=== PATIENT | female | born 1970 | race Caucasian/White ===

== ENCOUNTER 2017-05-01 17:24 | Emergency (ER) | payer SELFPAY ==
[2017-05-01 20:26] LABS: BASOPHILS 0.2 % (0-2); EOSINOPHILS 0.4 % (0-7); HEMATOCRIT 34.9 % (36.0-48.0); HEMOGLOBIN 11.3 g/dL (12-16); IMMATURE GRANULOCYTES 0.4 % (0-5); LYMPHOCYTES 12.9 % (15-50); MCH 28.5 pg (26.0-34.0); MCHC 32.4 g/dL (31.0-37.0); MCV 87.9 fL (80.0-100.0); MEAN PLATELET VOLUME 9.3 fL (7.4-10.4); NEUTROPHILS 80.1 % (40-80); PLATELET COUNT 274 10x3/uL (130-400); RBC 3.97 10x6/uL (4.00-5.40); WBC 11.4 10x3/uL (4.8-10.8)
[2017-05-01 20:33] LABS: CALC OSMOLALITY 276 mosm/kg (275-300); CALCIUM 7.7 mg/dL (8.5-10.1); CARBON DIOXIDE 24.2 mmol/L (21.0-32.0); CHLORIDE - SERUM 105 mmol/L (98-107); CREATININE - SERUM 0.7 mg/dL (0.6-1.3); GLUCOSE 102 mg/dL (74-106); POTASSIUM - SERUM 3.9 mmol/L (3.5-5.1); SODIUM 138 mmol/L (136-145); UREA NITROGEN 15 mg/dL (7-18); eGFR NON AFRICAN AMERICAN > 90 mL/min (90-120)
== END 2017-05-01 20:37 | disposition home or self-care (01) ==
LOC: D.ER 17:24
PROVIDERS: Nurse Practitioner Acute Care
DX: S47.1XXA Crushing injury of right shoulder and upper arm, initial encounter (principal); X36.1XXA Avalanche, landslide, or mudslide, initial encounter; Y93.89 Activity, other specified; Y92.89 Other specified places as the place of occurrence of the external cause; S40.021A Contusion of right upper arm, initial encounter

== ENCOUNTER 2017-11-24 05:15 | Day surgery (SDC) | payer OTHER ==
[2017-11-23 12:15] LABS: BASOPHILS 0.4 % (0-2); EOSINOPHILS 1.7 % (0-7); HEMATOCRIT 39.1 % (36.0-48.0); HEMOGLOBIN 12.5 g/dL (12-16); IMMATURE GRANULOCYTES 0.4 % (0-5); MCH 28.7 pg (26.0-34.0); MCV 89.7 fL (80.0-100.0); MEAN PLATELET VOLUME 8.8 fL (7.4-10.4); MONOCYTES 7.3 % (2-11); NEUTROPHILS 65.2 % (40-80); PLATELET COUNT 295 10x3/uL (130-400); RBC 4.36 10x6/uL (4.00-5.40); RDW 13.2 % (11.5-14.5); WBC 7.5 10x3/uL (4.8-10.8)
[~2017-11-24] VITALS: Ht 157.5 cm; Wt 83.5 kg
--- NOTE | ~2017-11-24 | OP ---
PATIENT NAME: REJI CRESPO MEDICAL RECORD: [id number] :70 LOCATION:[facility] ADMISSION DATE: SURGEON: KYLE AVERY MD DATE OF OPERATION: 11/24/2017 PREOPERATIVE DIAGNOSES: Metrorrhagia/intermenstrual bleeding. POSTOPERATIVE DIAGNOSES: Metrorrhagia/intermenstrual bleeding. PROCEDURES: Hysteroscopy, dilation and curettage. SURGEON: Kyle Avery MD ANESTHESIA: General. IV FLUID: Per anesthesia record. HYSTEROSCOPIC FLUID LOSS: Less than 100 cc of 0.9 normal saline. ESTIMATED BLOOD LOSS: Minimal. SPECIMENS: Endometrial curettings. FINDINGS: 1. Grossly normal-appearing external genitalia and cervix. 2. Multiple benign-appearing endometrial polyps. COMPLICATIONS: None apparent. PROCEDURE IN DETAIL: The patient was taken to the operating room, where general anesthesia was achieved without any difficulty. The patient was then prepped and draped in normal sterile fashion in the dorsal lithotomy position. At this point, the bladder was drained of approximately 100 cc of clear yellow urine. A speculum was then placed into the vagina and the cervix was grasped on its anterior lip with a single-tooth tenaculum. The uterus was then sounded and dilated to approximately 6 mm. At this point, hysteroscope was introduced into the uterus without resistance and under direct visualization. Survey of the uterine fundus, midportion, and endocervical canal was performed. A #1 curette was then used to gently curettage all 4 quadrants including the removal of several small endometrial polyps. Minimal bleeding was noted following the D&C and the single-tooth tenaculum was removed. The patient tolerated procedure well, was transferred to postanesthesia recovery stable without incident. TRANSINT:[id number] Voice Confirmation ID: [id number] DOCUMENT ID: [id number] KYLE AVERY MD at 1007 CC: [id number] DICTATION DATE: 12/18/17805 FIELD NATURALIST: 12/18/17 1354 [facility] 11/24/17 [id number] [place] [address]
[~2017-11-24 05:15] MED LIST: CLARITIN-D1 TAB.SR1 PO; CYMBALTA60 MG PO; NAPROSYN500 MG PO
[2017-11-24] MEDS ORDERED: PEPCID20 MG PO (05:50)
[2017-11-24 05:51] VITALS: BP 129/82; BMI 33.7
[2017-11-24 06:25] LABS: HCG URINE NEGATIVE (NEGATIVE)
[2017-11-24 06:40] VITALS: Ht 157.5 cm; Wt 83.5 kg
== END 2017-11-24 09:50 | disposition home or self-care (01) ==
LOC: D.OPS 05:15 → D.PAN 07:30 → D.OPS 09:15 → D.PAN 09:15 → D.OPS 09:50
PROVIDERS: Obstetrics & Gynecology
DX: N92.1 Excessive and frequent menstruation with irregular cycle (principal); K21.9 Gastro-esophageal reflux disease without esophagitis; Z01.812 Encounter for preprocedural laboratory examination

== ENCOUNTER → 2020-03-21 08:07 | Outpatient (CLI) | payer OTHER ==
[2017-11-24 06:40] VITALS: BMI 33.7
[~2020-03-21 08:07] MED LIST changes: +PEPCID20 MG PO
== END | disposition home or self-care (01) ==
LOC: D.MRI 08:07
PROVIDERS: ATTEND Nurse Practitioner Family
DX: M25.561 Pain in right knee (principal)

== ENCOUNTER 2020-04-11 09:36 | Day surgery (SDC) | payer OTHER ==
[~2020-04-11] VITALS: Ht 157.5 cm; Wt 87.5 kg
[2020-04-11 10:15] LABS: HEMATOCRIT 38.9 % (36.0-48.0); MCH 24.8 pg (26.0-34.0); MCHC 30.8 g/dL (31.0-37.0); MCV 80.4 fL (80.0-100.0); MEAN PLATELET VOLUME 9.3 fL (7.4-10.4); RBC 4.84 10x6/uL (4.00-5.40); WBC 6.9 10x3/uL (4.8-10.8)
[2020-04-11 10:35] LABS: HCG SERUM NEGATIVE (NEGATIVE)
[2020-04-11 10:42] VITALS: BP 117/68; Ht 157.5 cm; Wt 87.5 kg
--- NOTE | 2020-04-11 16:20 | NUR ---
1600 IV REMOVED AND INSTRUCTIONS GIVEN
--- NOTE | 2020-04-11 17:10 | NUR ---
1520 MEDICATED FOR PAIN. 1700 IV REMOVED AND INSTRUCTIONS GIVEN. ASSITED TO BATHROOM WITH WALKER. VOIDED
--- NOTE | 2020-04-13 12:49 | OP ---
PATIENT NAME: REJI CRESPO MEDICAL RECORD: [id number] :70 LOCATION:[facility] ADMISSION DATE: SURGEON: SCOOBY OGDEN DO DATE OF OPERATION: 04/11/2020 PROCEDURE PERFORMED: Right knee arthroscopy with medial meniscal repair, plica resection, and loose body removal. PREOPERATIVE DIAGNOSES: Right knee medial meniscal tear, loose body and plica. POSTOPERATIVE DIAGNOSES: Right knee medial meniscal tear, loose body and plica. INDICATIONS: Ms. Crespo is a 50-year-old female who has had right knee pain for quite some time, popping, catching, locking, and continued pain. She wanted something done surgically as it has been bothering her quite some time. I informed her that due to her age, she is 51, I would probably not repair the meniscus initially; once I got in there, I saw that it needed to be informed of the risks including, retear, continued pain, damage to the nerves and vessels in the area, arthrofibrosis and need for further surgery, blood clots, and even and she signed the consent. SURGEON: Scooby Ogden DO DESCRIPTION OF PROCEDURE: The patient was taken to operative suite and laid in supine position, given general anesthetic and 2 grams Ancef and LMA was placed. The right lower extremity was then prepped and draped in sterile fashion. A timeout was performed; everyone was in agreement with the correct side, site, patient and procedure. I then began by establishing a lateral portal with an 11-blade scalpel. Trocar was then entered into the knee and the camera entered the knee. The suprapatellar pouch was free of debris and the articular cartilage of the patella to be in good repair. Medial and lateral gutters were checked and no loose body seen. I then flexed the knee down entered the medial compartment. There was a large loose body seen in it, the medial portal was established with an 18-gauge spinal needle and 11-blade scalpel. I brought in a shaver and removed the loose body. I then saw the meniscal tear which was at the middle portion of the medial meniscus. It was a horizontal tear, which it. I decided at that point I need to repair because it would split and if I trimmed out the whole thing she would be left with little to no meniscus. I switched camera portals after inspecting the ACL, which was in good repair in the lateral compartment, which is also no tears of the meniscus or no chondromalacia. I then switched the portals from lateral to medial and then brought in the Fast-Fix from the lateral portal and put in 2 Fast-Fix to tie down the linear tear horizontal tear through the meniscus, repairing it nicely, chewed back any of the other fraying of the meniscus. Then, the tourniquet was inflated during the procedure due to some bleeding and it was let down 18 minutes 350 mmHg. I then resected the plica that which was noted over the medial condyle with a shaver, I then took a power pick and picked the notch in order to get some pluripotential cells to assist with meniscal repair. The instruments were then all removed. The excess fluid was removed from the knee to suction and the portal sites were closed by Adarsh Cox, certified surgical scrub technician with 4-0 Monocryl in inverted interrupted fashion. Steri-Strips, Adaptic, 4 x 4's, ABD, Webril, and Juve wrap were then placed on each incision. She was then awakened and taken to recovery in stable condition. ESTIMATED BLOOD LOSS: Minimal. OPERATIVE REPORT [id number] REJI CRESPO COMPLICATIONS: None. TRANSINT:[id number] Voice Confirmation ID: [id number] DOCUMENT ID: [id number] SCOOBY OGDEN DO at 1249 CC: [id number] DICTATION DATE: 04/11/20 1738 ORACLE DEVELOPER: 04/12/20 0414 [facility] 04/11/20 [id number] [place] [address]
== END 2020-04-11 17:10 | disposition home or self-care (01) ==
LOC: D.OPS 09:36 → D.PAN 12:00 → D.OPS 12:00
PROVIDERS: Anesthesiology; ATTEND Orthopaedic Surgery
DX: S83.241A Other tear of medial meniscus, current injury, right knee, initial encounter (principal); X58.XXXA Exposure to other specified factors, initial encounter; M25.561 Pain in right knee